=== PATIENT | female | born 1985 | race Hispanic/Latino ===

== ENCOUNTER 2019-12-25 10:28 | Emergency (ER) | payer BC, SELFPAY ==
[2019-12-25 10:36] VITALS: BP 126/76; PULSE 88; RESP 16; TEMP 38.2; O2SAT 100
--- NOTE | 2019-12-25 10:42 | ED.URI ---
HPI - URI/Sore Throat General Chief Complaint: Upper Respiratory Infection Stated Complaint: fever/chills/cough/body aches Time Seen by Provider: 12/25/19 10:45 Source: patient and RN notes reviewed Mode of arrival: ambulatory Limitations: no limitations History of Present Illness HPI Narrative: 34 year old female presents with concern for 3 day history of fever, body aches, runny nose, nasal congestion, cough, sore throat and headache. Reports taking tylenol and mucinex. MD elicited complaint: fever Related Data Home Medications Medication Instructions Recorded Confirmed albuterol sulfate 90 mcg/actuation 1 inhalation INHALATION Q4H 08/18/19 12/25/19 aerosol inhaler Otc Mucous Relief 12/25/19 acetaminophen [Tylenol] 325 mg PO ONCE PRN 12/25/19 12/25/19 Allergies Allergy/AdvReac Type Severity Reaction Status Date / Time house dust Allergy Mild Unknown Verified 12/25/19 10:43 pollen extracts Allergy Mild Unknown Verified 12/25/19 10:43 Review of Systems Review of Systems: Narrative: CONSTITUTIONAL:Reports fever, chills, or sweats. EYES: Denies visual changes, redness, or discharge. ENT: Reports rhinorrhea, congestion, sore throat, or otalgia. CARDIOVASCULAR: Denies chest pain, palpitations, or edema. RESPIRATORY: Reports cough, denies dyspnea. GASTROINTESTINAL: Denies abdominal pain, nausea, vomiting, or diarrhea. SKIN: Denies rash or itching. MUSCULOSKELETAL: Reports myalgia. NEUROLOGIC: Reports weakness. All systems reviewed & are unremarkable except as noted in HPI and below PMFSH Past Medical History Medical History (Updated 12/25/19 @ 10:53 by Ghada Delvalle NP) Asthma Psoriasis Radial styloid tenosynovitis [de quervain] Cyst present Surgical History Surgical History (Updated 08/18/19 @ 15:19 by Sarahi Case) History of cholecystectomy (~2008) Family History Family History (Updated 08/18/19 @ 15:20 by Sarahi Case) Mother Family history of malignant neoplasm of breast in first degree relative Unknown No problems noted. Unknown Diabetes mellitus Unknown No problems noted. Social History Social History (Updated 08/31/19 @ 10:08 by Niharika Reed) Smoking status: Never smoker Second hand tobacco smoke exposure: No Alcohol intake: current Drinks per week: 1 Substance use: never Substance use type: does not use Gender identity (if verbalized by the patient): Female Comments At time of signature, agree with nursing past medical, surgical, social and family history. There is no relevant family history pertinent to the presenting complaint Exam Narrative: Exam Narrative: GENERAL: Well-appearing, well-nourished, and in no acute distress. HEAD: Normocephalic EYES: PERRLA, conjunctivae clear ENT: Nares clear, turbinates edematous and erythematous, clear discharge. Mucous membranes moist. TM pearly pa with dull light reflex bilaterally; no tragal tenderness. Oropharynx not erythematous without lesions. Tonsils not enlarged and without exudate, no drooling, no hoarseness, no trismus, uvula midline. NECK: Supple. No lymphadenopathy CHEST: Clear to auscultation, breath sounds equal. No wheezing, rhonchi, rales, or stridor. No respiratory distress, speaks in full sentences. HEART: Regular rate and rhythm. No murmur heard. Normal peripheral pulses. SKIN: Warm, dry, no rash. NEURO: Alert and oriented x3. PSYCH: Normal mood and affect Course Course Emergency Course: Patient is aware of diagnosis, understands and agrees to treatment plan. Anticipatory guidance given. Patient agrees to follow-up as directed and is aware of reasons to seek care at the emergency department. Portions of this record may have been created with voice recognition software Vital Signs Vital signs: Vital Signs Temperature 100.7 F H 12/25/19 10:36 Pulse Rate 88 12/25/19 10:36 Respiratory Rate 16 12/25/19 10:36 Blood Pressure 126/76 12/25/19 10:36 Pulse Oximetry
== END 2019-12-25 10:58 | disposition home or self-care (01) ==
PROVIDERS: Emergency Provider Nurse Practitioner; PCP Family Medicine
DX: R50.9 Fever, unspecified (principal); J34.89 Other specified disorders of nose and nasal sinuses; J02.9 Acute pharyngitis, unspecified; R05 Cough; R51 Headache
CPT/HCPCS: 99213; G0463

== ENCOUNTER → 2020-11-01 10:50 | Outpatient (CLI) | payer BC, SELFPAY ==
--- NOTE | ~2020-11-01 | MM_ITS ---
EXAMINATION: MM screening joel BI w gregorio HISTORY: Screening TECHNIQUE: Craniocaudal and mediolateral oblique 3-D tomosynthesis images were obtained and synthetic 2-D images were generated. CAD analysis was submitted and interpreted. COMPARISON: 04/21/2019 BREAST PARENCHYMAL COMPOSITION: The breasts are heterogeneously dense, which may obscure small masses . FINDINGS: There is no evidence of suspicious mass, calcification, or architectural distortion to sugg est malignancy in either breast. There has been no suspicious interval change. IMPRESSION: 1. No mammographic evidence of malignancy. 2. Recommend routine screening mammography in one year. BI-RADS Category 1: Negative Reviewed, dictated and finalized at location A. [facility]
== END ==
PROVIDERS: PCP Family Medicine; Visit Provider Physician Assistant
DX: Z12.31 Encounter for screening mammogram for malignant neoplasm of breast (principal)
CPT/HCPCS: 77063; 77067

== ENCOUNTER → 2022-04-10 10:14 | Outpatient (CLI) | payer BC, SELFPAY ==
--- NOTE | ~2022-04-10 | MM_ITS ---
EXAMINATION: MM screening joel BI w gregorio HISTORY: Screening mammogram TECHNIQUE: Craniocaudal and mediolateral oblique 3-D tomosynthesis images were obtained and synthetic 2-D images were generated. CAD analysis was submitted and interpreted. COMPARISON: No prior mammogram is available for comparison at this institution. BREAST PARENCHYMAL COMPOSITION: The breasts are heterogeneously dense, which may obscure small masses . FINDINGS: There is no evidence of suspicious mass, calcification, or architectural distortion to sugg est malignancy in either breast. There has been no suspicious interval change. IMPRESSION: 1. No mammographic evidence of malignancy. 2. Recommend routine screening mammography in one year. BI-RADS Category 1: Negative Reviewed, dictated and finalized at location A.
== END ==
PROVIDERS: PCP Family Medicine; Visit Provider Family Medicine
DX: Z12.31 Encounter for screening mammogram for malignant neoplasm of breast (principal)
CPT/HCPCS: 77063; 77067

== ENCOUNTER 2023-07-27 16:11 | Inpatient (IN) | payer BC, SELFPAY ==
[2023-07-27] VITALS (29 sets, daily range): BP systolic 95–148; BP diastolic 67–99; PULSE 69–85; O2SAT 100; BMI 29.5
--- NOTE | 2023-07-27 16:40 | ADMGEN ---
This patient, Delma Ansari, was admitted to Labor/Delivery/Recovery 108-00. Patient/family oriented to hospital policies and general routines including ID bracelet, bed and alarms, visiting hours, pain management, procedures, bathroom and other care routines, personal items, smoking policy, room service/diet, and visiting hours. Information on how to activate the Rapid Response Team has been discussed. Patient/Family are encouraged to report perceived risks to care and to ask questions if they do not understand what they are told or what they should do.
[2023-07-27 16:49] LABS: Basophils Percent Auto 0.4 % (0.2-1.2); Eosinophils Absolute Auto 0.2 K/mm3 (0-0.3); Eosinophils Percent Auto 2.5 % (0-4.4); Hematocrit 43.2 % (37.0-47.0); Hemoglobin 14.4 g/dL (12.0-15.0); Immature Granulocyte Absolute 0.03 K/mm3 (0.00-0.031); Immature Granulocyte Percent A 0.4 % (0-0.5); Lymphocytes Absolute Auto 1.67 K/mm3 (0.9-3.2); Lymphocytes Percent Auto 23.1 % (18.3-44.2); Mean Corpuscular HGB Conc 33.3 g/dl (32-36); Mean Corpuscular Hemoglobin 31.7 pg (26-34); Mean Corpuscular Volume 95.2 fl (80-100); Mean Platelet Volume 12.1 fl (7.4-10.4); Monocytes Absolute Auto 0.5 K/mm3 (0.1-0.6); Monocytes Percent Auto 6.9 % (2.6-8.5); Neutrophils Absolute Auto 4.8 K/mm3 (1.3-6.7); Neutrophils Percent Auto 66.7 % (45.5-73.1); Platelet Count Result 209 k/mm3 (150-375); Red Blood Count 4.54 M/mm3 (4.2-5.4); Red Cell Distribution Width 12.3 % (11.5-14.5); White Blood Count 7.2 K/mm3 (4.5-10.0)
--- NOTE | 2023-07-27 17:07 | PM.IMHP ---
H&P: HPI History of Present Illness Date/Time: 07/27/23 17:07 Chief Complaint: Induction of labor Narrative: Delma is a 38yo @ 39.0wks who presents for induction of labor. She has had regular care and has followed with [facility] doing testing as well. She reports good movement. No ctx, vb, or lof. Her is complicated by: - IVF donor egg. performed in [place]. Patient stops supplemental progesterone at 15 weeks. aspirin daily... Per [facility], echocardiogram at 24 weeks, ANT starting weekly at 32 weeks. - AMA; NIPT and following w/ MFM - Mild polyhydramnios; MVP 9.3cm Review of Systems Constitutional: Constitutional: Denies chills, Denies fever(s) and Denies headache(s) Eyes: Eyes: Denies change in vision ENT: Denies headache(s) Cardiovascular: Cardiovascular: Denies chest pain and Denies dyspnea Respiratory: Respiratory: Denies dyspnea Genitourinary: Genitourinary: Denies abnormal vaginal bleeding and Denies vaginal discharge Neurologic: Denies headache(s) Psychiatric: Psychiatric: Denies anxiety and Denies depression [facility] Past Medical History Medical History Asthma exercise induced Endometriosis covers her ovaries Infertility Psoriasis Radial styloid tenosynovitis [de quervain] Cyst present Suppression of menses Surgical History Surgical History History of cholecystectomy (~2008) 2009 Family History Family History Mother Family history of malignant neoplasm of breast in first degree relative Dx age 43 Other Hypertension aunt and uncle Grandparent Diabetes mellitus Social History Social History Smoking status: Never smoker Second hand tobacco smoke exposure: No Alcohol intake: current Drinks per week: 1 Alcohol use details: Occasional Substance use: never Lack of Transportation: No Lack of Food: Never True Current Housing: I Have Housing Concerned About Future Housing: No Difficulty Paying Gas/Electric Bills: No Difficulty Paying for Meds: No Currently Unemployed: No Education: Bachelor's Degree Difficulty w/ Childcare or Family Care: No Living arrangements: with family Additional living arrangements comments: Occupation/Education: unemployed Gender identity (if verbalized by the patient): Female Sexual Orientation (if Verbalized by the Patient): Straight or Heterosexual Spiritual care concerns: No Agree to blood products: Yes Meds Home Medications and Allergies Home Medications Medication Instructions Recorded Confirmed Type docosahexaenoic acid (dha)-epa 120 1 cap PO DAILY 11/26/21 07/27/23 History mg-180 mg capsule (Fish Oil) aspirin 81 mg tablet,delayed 81 mg PO DAILY 04/06/23 07/27/23 History release (Adult Low Dose Aspirin) magnesium 200 mg tablet 400 mg PO DAILY 04/06/23 07/27/23 History albuterol sulfate 90 mcg/actuation See Rx Instructions .Route 07/08/23 07/27/23 Rx aerosol inhaler .COMPLEX #8.5 ea 1 tab-cap PO DAILY 07/27/23 07/27/23 History Allergies Allergy/AdvReac Type Severity Reaction Status Date / Time No Known Allergies Allergy Verified 07/27/23 16:56 Exam Const: General: cooperative, comfortable, no acute distress and obese Nutritional Appearance: obese Orientation/consciousness: patient oriented x3 Resp: Effort & Inspection: normal respiratory effort Cardio: Rate: regular rate GI: GI Palp: No abdominal tenderness : Other: FHT's: 135's/ mod janny/ + accels/ no decels - cat 1 TOCO: irregular ctxs q6min Cervix: closed/50/-2 Membranes: intact Presentation: cephalic Skin: General skin exam: normal color Neuro: General: patient oriented x3 Extrem: General: normal to inspection Psych:
[2023-07-27] MEDS: DINOPROSTONE 10 MG VAG INSERT VAGINAL (17:36)
[2023-07-28] VITALS (138 sets, daily range): BP systolic 86–148; BP diastolic 55–99; PULSE 60–108; RESP 16; TEMP 36.6–37.3; O2SAT 97–100
[2023-07-28] MEDS: miSOPROStol 25 MCG TABLET PO (07:04)
--- NOTE | 2023-07-28 07:25 | PM.OBPNLAB ---
Pain Control Date/time seen: 07/28/23 07:25 Pain control: tolerating well Pelvic Exam Dilation (cm): 0 (.5) Effacement (%): 80 station: -2 Amniotic membrane status: Intact Contractions Monitor mode: External Contraction pattern: Irregular Status status: Category l Assessment and Plan Assessment: induction ongoing Comments: misoprostol 25mcg buccal @ 0700 Cook balloon placed at 0720; 30cc in each balloon; will place on tension
[2023-07-28 10:43] LABS: Rapid Plasma Reagin Non-Reactive (NonReactive)
[2023-07-28] MEDS: OXYTOCIN 30 UNITS/NS 500 ML 30 UNITS/500 ML BAG 6 UNITS IV CONT (12:14)
[2023-07-28] MEDS: LACTATED RINGERS 1,000 ML 125 ML IV CONT ×3 (12:14→19:06)
--- NOTE | 2023-07-28 12:39 | PM.OBPNLAB ---
Pain Control Date/time seen: 07/28/23 12:39 Pain control: tolerating well Pelvic Exam Dilation (cm): 2 Effacement (%): 80 station: -2 Amniotic membrane status: Ruptured (AROM, clear 1230) Contractions Monitor mode: External Contraction frequency: 3 Contraction pattern: Regular Status status: Category l Assessment and Plan Pitocin rate (mU/min): 6 Assessment: induction ongoing Plan: continuous present management
--- NOTE | 2023-07-28 17:53 | WPDANESEPPF ---
Anes - Initial Pre Proc Eval Procedure: labor epidural Date/Time: 07/28/23 17:53 Surgeon: Marian Booth MD Pre Op Diagnosis: labor pain Pre Op Diagnosis: IOL Patient Data Age: 38 Gender: F Height: 1.63 m Weight: 78 kg Last Vital Signs Temp 36.8 C 07/28/23 17:30 Pulse 94 07/28/23 16:30 Resp 16 07/28/23 05:38 BP 136/85 07/28/23 16:30 Pulse Ox 100 07/27/23 16:29 O2 Del Method Room Air 07/27/23 16:34 Allergies Allergy/AdvReac Type Severity Reaction Status Date / Time No Known Allergies Allergy Verified 07/27/23 16:56 Home Medications Medication Instructions Recorded Confirmed Type docosahexaenoic acid (dha)-epa 120 1 cap PO DAILY 11/26/21 07/27/23 History mg-180 mg capsule (Fish Oil) aspirin 81 mg tablet,delayed 81 mg PO DAILY 04/06/23 07/27/23 History release (Adult Low Dose Aspirin) magnesium 200 mg tablet 400 mg PO DAILY 04/06/23 07/27/23 History albuterol sulfate 90 mcg/actuation See Rx Instructions .Route 07/08/23 07/27/23 Rx aerosol inhaler .COMPLEX #8.5 ea 1 tab-cap PO DAILY 07/27/23 07/27/23 History Laboratory Tests 07/27/23 16:43 RPR Non-reactive (NonReactive) Patient hx anesthesia problems: none Family hx anesthesia problems: none Results Review: All pre-operative results and documents have been reviewed as part of the pre-operative evaluation. [facility] Past Medical History Medical History Asthma exercise induced Endometriosis covers her ovaries Infertility Psoriasis Radial styloid tenosynovitis [de quervain] Cyst present Suppression of menses Surgical History Surgical History History of cholecystectomy (~2008) 2009 Family History Family History Mother Family history of malignant neoplasm of breast in first degree relative Dx age 43 Other Hypertension aunt and uncle Grandparent Diabetes mellitus Social History Social History Smoking status: Never smoker Second hand tobacco smoke exposure: No Alcohol intake: current Drinks per week: 1 Alcohol use details: Occasional Substance use: never Lack of Transportation: No Lack of Food: Never True Current Housing: I Have Housing Concerned About Future Housing: No Difficulty Paying Gas/Electric Bills: No Difficulty Paying for Meds: No Currently Unemployed: No Education: Bachelor's Degree Difficulty w/ Childcare or Family Care: No Living arrangements: with family Additional living arrangements comments: Occupation/Education: unemployed Gender identity (if verbalized by the patient): Female Sexual Orientation (if Verbalized by the Patient): Straight or Heterosexual Spiritual care concerns: No Agree to blood products: Yes Anes - Eval Final PreProcedure Day of Procedure 07/28/23 17:53 Patient weight: overweight ASA classification: II Anesthetic plan: proceed Anesthesia type and monitoring: regional epidural and standard monitoring Results Review: All pre-operative results and documents have been reviewed as part of the pre-operative evaluation. Informed Consent: The patient's anesthetic plan and its attendant risks and benefits were discussed with the patient/family/POA. Questions were solicited and answers provided to the satisfaction of the patient/family/POA.
--- NOTE | 2023-07-28 19:02 | PM.OBPNLAB ---
Pain Control Date/time seen: 07/28/23 19:02 Pain control: epidural Pelvic Exam Dilation (cm): 4 Effacement (%): 90 station: -2 Amniotic membrane status: Ruptured (AROM, clear 1230) Contractions Monitor mode: Internal Contraction frequency: 3 (-4) Contraction pattern: Regular Status status: Category l Assessment and Plan Pitocin rate (mU/min): 22 Assessment: induction ongoing Plan: continuous present management
[2023-07-29] VITALS (189 sets, daily range): BP systolic 105–223; BP diastolic 59–150; PULSE 31–164; RESP 16–18; TEMP 36.8–40; O2SAT 77–100
[2023-07-29] MEDS: LACTATED RINGERS 1,000 ML 125 ML IV CONT ×2 (03:06→10:04)
[2023-07-29] MEDS: diphenhydrAMINE HCl INJ 50 MG/ML VIAL 25 MG IV PUSH (05:36)
[2023-07-29] MEDS: OXYTOCIN 30 UNITS/NS 500 ML 30 UNITS/500 ML BAG 6 UNITS IV CONT (07:14)
--- NOTE | 2023-07-29 07:30 | PM.OBPNLAB ---
Pain Control Date/time seen: 07/29/23 07:30 Pain control: epidural Pelvic Exam Dilation (cm): 8 (.5) Effacement (%): 90 station: 0 Amniotic membrane status: Ruptured (AROM, clear 1230) Contractions Monitor mode: Internal Contraction frequency: 4 Contraction pattern: Regular Status status: Category l Assessment and Plan Pitocin rate (mU/min): 26 Assessment: active labor Plan: continuous present management Comments: - protracted labor; was 6cm from 2a-5a; now 8.5cm - continuing to increase pitocin; head feels OP - Ruptured >18hrs; will start ampicillin, currently afebrile
[2023-07-29] MEDS: AMPICILLIN 2 GM/NS 100 ML 2 GM/100 ML BAG IVPB ×2 (07:47→19:09)
[2023-07-29] MEDS: ACETAMINOPHEN 500 MG TABLET 1000 MG PO (09:41)
[2023-07-29] MEDS: GENTAMICIN SULFATE INJ 390 MG in DEXTROSE 5% 100 ML 100 MG IVPB (10:03)
[2023-07-29] MEDS: miSOPROStol 200 MCG TABLET 1000 MCG RECTAL (12:22)
[2023-07-29] MEDS: AMPICILLIN 1 GM/NS 50 ML 1 GM/50 ML BAG IVPB ×2 (12:30→13:00)
[2023-07-29] MEDS: OXYTOCIN 30 UNITS/NS 500 ML 30 UNITS/500 ML BAG 125 UNITS IV CONT (12:30)
--- NOTE | 2023-07-29 13:04 | PM.OBPRVD ---
OB - Delivery Note Procedure Delivery date: 07/29/23 Events: Other (Medical IOL for AMA/IVF ) Intrapartal Events: Chorioamnionitis and Decelerations Induction method: Per Cervidil Protocol Delivery augmentation: Rupture of Membranes and Pitocin Delivery monitor: External FHT and Internal Uterine Route of delivery: vacuum extraction Indication for instrumentation: maternal exhaustion (and nonreassuring FHR tracing) Laceration Description: Perineal - 2nd Degree and Vaginal (left) Delivery repair: vicryl Specimen: Yes (placenta) Quantitative Blood Loss (ml): 500 Anesthesia type: Epidural Disposition: Floor Baby Date of : 07/29/23 Time of : 12:11 Weeks of gestation at delivery: 39 (.2) gender: Female presentation: vertex position: Right Occiput Anterior Placenta delivery description: Expressed Cord Vessel Description: 3 Vessels and Delayed Cord Clamping score one minute: 8 score five minutes: 9 Narrative: Delma progressed to complete dilation and began pushing with good maternal effort for approximately 2 hours. She was diagnosed with chorioamnionitis and had a fever up to 104 F. She was given gentamicin 5 mg/kg, ampicillin 2 g, and Tylenol. While pushing fetus was found to be tachycardic but still had moderate variability. She was bolused IV fluids but fetus remained with heart rate in the 180s to 190s. When Delma progressed to 2+ station I counseled her on need for vacuum assisted vaginal delivery due to the heart tones and she accepted as she was exhausted. The vacuum was applied and with her next contraction 1 pull was performed. The vacuum was released and we waited until her next contraction. With the next contraction suction was reapplied and with 2 pulls the head was delivered. Nuchal cord was noted but delivered through. She easily delivered the infant's shoulders and body without complication. The vacuum was released. The infant was immediately placed skin to skin. The pediatric attending was present for the delivery. The pediatric nurse then bulb suctioned the infants mouth and nose. Spontaneous cry was heard. Delayed cord clamping was performed. The umbilical cord was then doubly clamped and cut. A segment of the cord was collected for cord gases. The remaining cord blood was collected for typing. With Pitocin running and gentle downward traction on the cord the placenta delivered without complications. Bimanual massage was performed and good uterine tone with minimal bleeding was noted. She was examined and a second-degree perineal laceration as well as a left vaginal laceration were noted. The second-degree laceration was repaired in normal fashion using 2-0 Vicryl. The vaginal laceration was repaired using 3-0 Vicryl. Good hemostasis was noted. Due to her long induction, we proceeded with placing 1000 mcg of misoprostol rectally. She will continue antibiotics for a full 24 hours. Sponge, lap, instrument, and needle counts were correct at the end of procedure. Mom and baby were left bonding in the birthing suite in stable condition. [facility] Delivery Billing Delivery Delivery: Delivery Charge
[2023-07-29] MEDS: IBUPROFEN 600 MG TABLET PO (14:20)
[2023-07-29] MEDS: BENZOCAINE 20% AER SPR (*SP) 56 GM CAN 1 SPRAY TOPICAL (14:21)
[2023-07-29] MEDS: WITCH HAZEL 40 PADS 1 PAD TOPICAL (14:21)
--- NOTE | 2023-07-29 16:36 | OBPPTRN ---
1446-Patient transferred to post room #278 via wheelchair. Support person present. Oriented to unit, room, information board, rooming in, admission packet and security measures. Patient verbalizes understanding.
[2023-07-29] MEDS: CLINDAMYCIN 900 MG/D5W 50 ML 900 MG/50 ML PIGGYBACK 50 MG IVPB (17:17)
[2023-07-29] MEDS: SODIUM CHLORIDE 0.9% IV 250 ML 125 ML (19:46)
[2023-07-30] MEDS: AMPICILLIN 2 GM/NS 100 ML 2 GM/100 ML BAG IVPB ×3 (01:13→14:00)
[2023-07-30 04:15] VITALS: BP 120/75; PULSE 77; RESP 16; TEMP 36.4
[2023-07-30 05:27] LABS: Basophils Absolute Auto 0.1 K/mm3 (0.0-0.1); Basophils Percent Auto 0.4 % (0.2-1.2); Eosinophils Absolute Auto 0.1 K/mm3 (0-0.3); Eosinophils Percent Auto 0.3 % (0-4.4); Hematocrit 29.2 % (37.0-47.0); Hemoglobin 9.8 g/dL (12.0-15.0); Immature Granulocyte Absolute 0.16 K/mm3 (0.00-0.031); Immature Granulocyte Percent A 0.7 % (0-0.5); Lymphocytes Absolute Auto 2.45 K/mm3 (0.9-3.2); Lymphocytes Percent Auto 10.3 % (18.3-44.2); Mean Corpuscular HGB Conc 33.6 g/dl (32-36); Mean Corpuscular Hemoglobin 31.7 pg (26-34); Mean Corpuscular Volume 94.5 fl (80-100); Mean Platelet Volume 12.4 fl (7.4-10.4); Monocytes Absolute Auto 1.2 K/mm3 (0.1-0.6); Monocytes Percent Auto 5.1 % (2.6-8.5); Neutrophils Absolute Auto 19.9 K/mm3 (1.3-6.7); Neutrophils Percent Auto 83.2 % (45.5-73.1); Platelet Count Result 145 k/mm3 (150-375); Red Blood Count 3.09 M/mm3 (4.2-5.4); Red Cell Distribution Width 12.6 % (11.5-14.5); White Blood Count 23.9 K/mm3 (4.5-10.0)
[2023-07-30 05:41] LABS: Potassium 3.4 mmol/L (3.4-5.0)
[2023-07-30 06:03] LABS: Alanine Aminotransferase 29 U/L (6-35); Albumin Level 2.6 g/dL (3.5-5.1); Alkaline Phosphatase 149 U/L (38-126); Anion Gap 6 mmol/L (8-16); Aspartate Amino Transferase 89 U/L (14-36); Bilirubin,Total 0.4 mg/dL (0.2-1.3); Blood Urea Nitrogen 8 mg/dL (7-17); Calcium 7.5 mg/dL (8.4-10.2); Carbon Dioxide 17 mmol/L (22-30); Chloride 111 mmol/L (98-107); Estimated CRCL calculation 108 ml/min; Estimated Glomerular Filt Rate > 60; Glucose 102 mg/dL (65-110); Sodium 134 mmol/L (137-145)
--- NOTE | 2023-07-30 07:45 | PM.OBPNVD ---
OB - PN: Subj Subjective Date/time seen: 07/30/23 07:45 Narrative: PPD#1 Delma reports doing well today. Her bleeding is cigarette examiner. Her pain is controlled. She is tolerating regular diet, voiding, passing gas, and ambulating without issues. She is breast feeding. She has been afebrile overnight; has still been getting antibiotics. OB - PN: Obj Data Labs 07/30/23 04:25 07/30/23 04:25 Labs: Laboratory Results - last 24 hr 07/30/23 04:25 WBC 23.9 H RBC 3.09 L Hgb 9.8 L D Hct 29.2 L MCV 94.5 MCH 31.7 MCHC 33.6 RDW 12.6 Plt Count 145 L MPV 12.4 H Immature Gran % (Auto) 0.7 H Neut % (Auto) 83.2 H Lymph % (Auto) 10.3 L [place] % (Auto) 5.1 Eos % (Auto) 0.3 Baso % (Auto) 0.4 Lymph # (Auto) 2.45 [place] # (Auto) 1.2 H Eos # (Auto) 0.1 Baso # (Auto) 0.1 Abs Immat Gran (auto) 0.16 H Absolute Neuts (auto) 19.9 H Absolute Nucleated RBC 0.0 Nucleated RBC % 0.0 Sodium 134 L Potassium 3.4 Chloride 111 H Carbon Dioxide 17 L Anion Gap 6 L BUN 8 Creatinine 0.60 L Estim Creat Clear Calc 108 Estimated GFR > 60 Glucose 102 Calcium 7.5 L Total Bilirubin 0.4 AST 89 H ALT 29 Alkaline Phosphatase 149 H Total Protein 5.0 L Albumin 2.6 L OB - PN A/P Assessment and Plan (1) Vacuum-assisted vaginal delivery: Code(s): Z37.9 - Outcome of delivery, unspecified Status: Acute (2) Chorioamnionitis: Qualifiers: Fetus number: single or unspecified fetus Trimester: unspecified trimester Qualified Code(s): O41.1290 - Chorioamnionitis, unspecified trimester, not applicable or unspecified Code(s): O41.1290 - Chorioamnionitis, unspecified trimester, not applicable or unspecified Status: Acute (3) PPH ( hemorrhage): Qualifiers: hemorrhage type: third-stage Qualified Code(s): O72.0 - Third-stage hemorrhage Code(s): O72.1 - Other immediate hemorrhage Status: Acute Plan day: 1 Plan: routine care Comments: - continuing antibiotics until 24 hour PP - will repeat blood work in AM to monitor WBC; afebrile overnight Time Spent With Patient Time: Total time spent is greater than 50% in coordination of care (as documented) at patient's floor/unit and/or counseling patient: Review of Systems Constitutional: Constitutional: Denies chills, Denies fever(s) and Denies headache(s) Eyes: Eyes: Denies change in vision ENT: Denies dizziness and Denies headache(s) Cardiovascular: Cardiovascular: Denies chest pain, Denies palpitations and Denies dyspnea Respiratory: Respiratory: Denies cough and Denies dyspnea Gastrointestinal: Gastrointestinal: Denies nausea and Denies vomiting Neurologic: Denies dizziness and Denies headache(s) Endocrine: Endocrine: Denies palpitations Exam Const: General: cooperative, comfortable and no acute distress Orientation/consciousness: patient oriented x3 Resp: Effort & Inspection: normal respiratory effort Auscultation: clear to auscultation bilaterally Cardio: Rate: regular rate GI: Inspection: non-distended GI Palp: No abdominal tenderness and Yes Soft to palpation Auscultation: normal bowel sounds : Other: fundus firm Skin: General skin exam: normal color Neuro: General: patient oriented x3 Extrem: General: normal to inspection Psych: Appearance: grossly normal Affect: normal affect Attitude: cooperative
[2023-07-30 07:50] VITALS: BP 105/66; PULSE 69; RESP 16; TEMP 36.2; O2SAT 100
[2023-07-30 08:00] VITALS: PULSE 69; RESP 16; O2SAT 100
--- NOTE | 2023-07-30 08:10 | P.PNOB_ITS ---
OB - PN: Subj Subjective Date/time seen: 07/30/23 08:10 Patient comments: no complaints, pain well controlled and tolerating diet [place] feeding status: exclusively breast feeding Narrative: patient doing well this AM. No complaints. Pain is well controlled. She reports minimal bleeding. She is ambulating and voiding without difficulty. She is tolerating PO. She denies N/V, fever, chills. OB - PN: Obj Data Labs 07/30/23 04:25 07/30/23 04:25 Labs: Laboratory Results - last 24 hr 07/30/23 04:25 WBC 23.9 H RBC 3.09 L Hgb 9.8 L D Hct 29.2 L MCV 94.5 MCH 31.7 MCHC 33.6 RDW 12.6 Plt Count 145 L MPV 12.4 H Immature Gran % (Auto) 0.7 H Neut % (Auto) 83.2 H Lymph % (Auto) 10.3 L [place] % (Auto) 5.1 Eos % (Auto) 0.3 Baso % (Auto) 0.4 Lymph # (Auto) 2.45 [place] # (Auto) 1.2 H Eos # (Auto) 0.1 Baso # (Auto) 0.1 Abs Immat Gran (auto) 0.16 H Absolute Neuts (auto) 19.9 H Absolute Nucleated RBC 0.0 Nucleated RBC % 0.0 Sodium 134 L Potassium 3.4 Chloride 111 H Carbon Dioxide 17 L Anion Gap 6 L BUN 8 Creatinine 0.60 L Estim Creat Clear Calc 108 Estimated GFR > 60 Glucose 102 Calcium 7.5 L Total Bilirubin 0.4 AST 89 H ALT 29 Alkaline Phosphatase 149 H Total Protein 5.0 L Albumin 2.6 L OB - PN A/P Plan day: 1 Plan: routine care Comments: patient doing well H/H 9.8/29.2, continue iron supplementation Afebrile, vital signs stable continue routine care Time Spent With Patient Time: Total time spent is greater than 50% in coordination of care (as documented) at patient's floor/unit and/or counseling patient: Time with patient: less than 15 minutes Review of Systems Review of Systems: All systems reviewed & are unremarkable except as noted in HPI and below Exam Const: General: comfortable and no acute distress Resp: Effort & Inspection: normal respiratory effort Cardio: Rate: regular rate GI: GI Palp: Yes Soft to palpation and No Tenderness to palpation present (GI) Auscultation: normal bowel sounds Other: fundus firm and below umbilicus. Psych: Affect: normal affect
[2023-07-30] MEDS: POLYSACCHARIDE IRON COMPLEX 150 MG CAPSULE PO ×2 (08:29→15:52)
[2023-07-30] MEDS: DOCUSATE SODIUM 100 MG CAPSULE PO ×2 (08:29→15:52)
[2023-07-30] MEDS: MULTIVIT/MIN/PREN/FOL AC/IRON TABLET 1 TAB PO (08:29)
[2023-07-30] MEDS: IBUPROFEN 600 MG TABLET PO (08:40)
[2023-07-30] MEDS: GENTAMICIN SULFATE INJ 390 MG in DEXTROSE 5% 100 ML 100.92 MG IVPB (10:21)
[2023-07-30 12:00] VITALS: BP 98/62; PULSE 78; RESP 16; TEMP 36.3; O2SAT 100
--- NOTE | 2023-07-30 14:14 | WPDANLDPN2 ---
Anes-Prog Note L&D Date/Time: 07/30/23 14:14 Comfortable throughout: labor and delivery Neuraxial method: epidural Epidural/Spinal procedure site: clean & non-tender Neuro status: Neuro function grossly intact. Cardiovascular status: normal Respiratory status: normal Airway patency: baseline Mental status: baseline Post-Op hydration status: normal Vital Signs: Last Vital Signs Temp 36.3 C L 07/30/23 12:00 Pulse 78 07/30/23 12:00 Resp 16 07/30/23 12:00 BP 98/62 L 07/30/23 12:00 Pulse Ox 100 07/30/23 12:00 O2 Del Method Room Air 07/30/23 08:00 Pain score (VAS): 2/10 I/O: Intake & Output 07/29/23 07/30/23 07/30/23 23:59 07:59 15:59 Intake Total 100 100 240 Balance 100 100 240 Post-procedural complaints: none Patient feedback: Patient satisfied with anesthetic care.
--- NOTE | 2023-07-30 18:49 | PC.NURSE ---
[id number] Introductions were made, then consulted with patient to assess needs related to . Mother led the conversation with her?plans to feed?her infant and the?experience so far. Mother works well with her with encouragement and education. Encouraged understanding of the benefits of skin to skin (demonstrating unwrapping and placing upright on her chest), stimulating with massage touch, changing positions to encourage wakefulness, how to watch for early feeding cues, responsive feeding, feeding on demand (aiming for 8-12 times in 24 hours, about every 2-3 hours), milk production, building/maintaining a milk supply, duration of feeding, signs of adequate intake/output and how to record on the feeding sheet. Reviewed positioning and ear, shoulder, hip alignment, supporting the breast to facilitate a deep latch, asymmetrical latch (off-center), leading with the chin with a big, open, wide gape and body close to mother. Infant latched optimally to the right breast in football position after a few attempts. Education given to parents of how to visualize suck/swallow and listen for drinking at the breast. was able to maintain latch without discomfort to mother and effectively breast feeds with assistance given to mother to bring the infant to the breast deeply. Nipple care reviewed with optimal latch and good positioning. Encouraged mother to practice holding, moving and bringing the to the breast reviewing alignment. Reminding mother of comfort measures of healing with a warm and wet washcloth to rinse breast, then leave open to air-dry as needed. Once infant stopped demonstrating swallowing was detached, placed [id number] upright on mother's chest, then offered the left breast. Reviewed alignment, positioning, supporting breast to facilitate infant latching deeply as has difficulty latching optimally to mother's large nipple. latched to the left breast using the football positioning after a few attempts. Education given to parents of how to visualize suck/swallow and listen for drinking at the breast. Infant was able to maintain latch without discomfort to mother and effectively breast feeds with assistance given to mother to bring the infant to the breast deeply. Nipple care reviewed with optimal latch and good positioning. Reviewed good handwashing when or touching the breast/nipples to prevent infection. Mother voiced understanding of skin to skin, stimulating with massage touch, responsive feedings, talking to to encourage if it has been 2 -2.5 hours since the start of the last , to call if does not latch, or if there is discomfort with . Parents voiced understanding of information, demonstrated learning and will call if there is a request for assistance. Reported to the Primary RN.
[2023-07-30 21:30] VITALS: BP 103/53; PULSE 79; RESP 18; TEMP 36.3
[2023-07-31 05:52] LABS: Basophils Absolute Auto 0.1 K/mm3 (0.0-0.1); Basophils Percent Auto 0.4 % (0.2-1.2); Eosinophils Absolute Auto 0.3 K/mm3 (0-0.3); Eosinophils Percent Auto 1.5 % (0-4.4); Hemoglobin 10.1 g/dL (12.0-15.0); Immature Granulocyte Absolute 0.19 K/mm3 (0.00-0.031); Immature Granulocyte Percent A 1.1 % (0-0.5); Lymphocytes Absolute Auto 2.13 K/mm3 (0.9-3.2); Lymphocytes Percent Auto 12.3 % (18.3-44.2); Mean Corpuscular HGB Conc 32.6 g/dl (32-36); Mean Corpuscular Hemoglobin 31.5 pg (26-34); Mean Corpuscular Volume 96.6 fl (80-100); Mean Platelet Volume 11.8 fl (7.4-10.4); Monocytes Absolute Auto 0.6 K/mm3 (0.1-0.6); Monocytes Percent Auto 3.6 % (2.6-8.5); Neutrophils Percent Auto 81.1 % (45.5-73.1); Platelet Count Result 176 k/mm3 (150-375); Red Blood Count 3.21 M/mm3 (4.2-5.4); Red Cell Distribution Width 12.7 % (11.5-14.5); White Blood Count 17.3 K/mm3 (4.5-10.0)
[2023-07-31 06:01] LABS: Alanine Aminotransferase 36 U/L (6-35); Alkaline Phosphatase 134 U/L (38-126); Anion Gap 2 mmol/L (8-16); Aspartate Amino Transferase 69 U/L (14-36); Bilirubin,Total 0.3 mg/dL (0.2-1.3); Blood Urea Nitrogen 8 mg/dL (7-17); Calcium 8.4 mg/dL (8.4-10.2); Carbon Dioxide 27 mmol/L (22-30); Chloride 106 mmol/L (98-107); Estimated CRCL calculation 108 ml/min; Estimated Glomerular Filt Rate > 60; Glucose 90 mg/dL (65-110); Potassium 3.5 mmol/L (3.4-5.0); Sodium 135 mmol/L (137-145)
[2023-07-31 07:30] VITALS: BP 127/76; PULSE 83; RESP 16; TEMP 36.5; O2SAT 100
[2023-07-31] MEDS: IBUPROFEN 600 MG TABLET PO (08:35)
[2023-07-31] MEDS: MULTIVIT/MIN/PREN/FOL AC/IRON TABLET 1 TAB PO (08:35)
--- NOTE | 2023-07-31 10:42 | PM.OBDSVD ---
DS: Admitting Diagnosis Discharge Date 07/31/23 Admitting Diagnosis intrauterine at term advanced maternal age IVF DS: Discharge Diagnosis Discharge Diagnosis (1) Vacuum-assisted vaginal delivery: Code(s): Z37.9 - Outcome of delivery, unspecified Status: Acute (2) PPH ( hemorrhage): Qualifiers: hemorrhage type: third-stage Qualified Code(s): O72.0 - Third-stage hemorrhage Code(s): O72.1 - Other immediate hemorrhage Status: Acute (3) conceived through in vitro fertilization: Qualifiers: Trimester: third trimester Qualified Code(s): O09.813 - Supervision of resulting from assisted reproductive technology, third trimester Code(s): O09.819 - Supervision of resulting from assisted reproductive technology, unspecified trimester Status: Acute (4) Advanced maternal age (AMA) in : Status: Acute OB - DS: Summary OB Procedures : None OB Procedures Intrapartum: Spontaneous Vag Delivery OB Procedures: : None Status at Discharge Functional status at discharge: independent ambulation Overall status at discharge: patient is back to baseline Time Spent with Patient Time attestation: Total time spent providing and/or coordinating discharge services: Time spent: Less than 30 minutes Exam Const: General: comfortable and no acute distress Resp: Effort & Inspection: normal respiratory effort Auscultation: clear to auscultation bilaterally Cardio: Rate: regular rate GI: GI Palp: Yes Soft to palpation Auscultation: normal bowel sounds Other: Fundus firm below umbilicus Psych: Appearance: grossly normal Mental Status: mental status grossly normal Affect: normal affect DS: Data Data Completed and Pending Pending studies at discharge: Pending at discharge 07/29/23 12:18 Surgical [PTH] Routine Labs on day of discharge: Labs from last 24 hours 07/31/23 07/31/23 07/31/23 05:16 05:16 05:16 WBC RBC Hgb Hct MCV MCH MCHC RDW 12.7 Plt Count 176 Cancelled MPV 11.8 H Cancelled Immature Gran % (Auto) 1.1 H Neut % (Auto) 81.1 H Lymph % (Auto) 12.3 L [place] % (Auto) 3.6 Eos % (Auto) 1.5 Baso % (Auto) 0.4 Lymph # (Auto) 2.13 [place] # (Auto) 0.6 Eos # (Auto) 0.3 Baso # (Auto) 0.1 Abs Immat Gran (auto) 0.19 H Absolute Neuts (auto) 14.0 H Absolute Nucleated RBC 0.0 Nucleated RBC % 0.0 % Immature Plt Fraction Cancelled Sodium 135 L Potassium 3.5 Chloride 106 Carbon Dioxide 27 Anion Gap 2 L BUN 8 Creatinine 0.60 L Estim Creat Clear Calc 108 Estimated GFR > 60 Glucose 90 Calcium 8.4 Total Bilirubin 0.3 AST 69 H ALT 36 H Alkaline Phosphatase 134 H Total Protein 6.0 L Albumin 3.0 L 07/31/23 07/31/23 07/31/23 05:16 05:16 05:16 WBC RBC Hgb Hct MCV 96.6 MCH 31.5 Cancelled MCHC 32.6 Cancelled RDW Cancelled Plt Count MPV Immature Gran % (Auto) Neut % (Auto) Lymph % (Auto) [place] % (Auto) Eos % (Auto) Baso % (Auto) Lymph # (Auto) [place] # (Auto) Eos # (Auto) Baso # (Auto) Abs Immat Gran (auto) Absolute Neuts (auto) Absolute Nucleated RBC Nucleated RBC % % Immature Plt Fraction Sodium Potassium Chloride Carbon Dioxide Anion Gap BUN Creatinine Estim Creat Clear Calc Estimated GFR Glucose Calcium Total Bilirubin AST ALT Alkaline Phosphatase Total Protein Albumin 07/31/23 07/31/23 07/31/23 05:16 05:16 05:16 WBC RBC 3.21 L Hgb 10.1 L Cancelled Hct 31.0 L Cancelled MCV Cancelled MCH MCHC RDW Plt Count MPV Immature Gran % (Auto) Neut % (Auto) Lymph % (Auto) [place] % (Auto) Eos % (Auto) Baso % (Auto) Lym
== END 2023-07-31 14:33 | disposition home or self-care (01) | DRG 806 ==
LOC: ANHOB2 07-31 12:06 → ANHLDR 08-02 12:02 → ANHOB2 08-02 12:02
PROVIDERS: Admitting Provider Obstetrics & Gynecology; PCP Family Medicine; Visit Provider Student in an Organized Health Care Education/Training Program
DX: O41.1230 Chorioamnionitis, third trimester, not applicable or unspecified (principal); O72.0 Third-stage hemorrhage; Z37.0 Single live birth; O40.3XX0 Polyhydramnios, third trimester, not applicable or unspecified; O76 Abnormality in fetal heart rate and rhythm complicating labor and delivery; O70.1 Second degree perineal laceration during delivery; O69.81X0 Labor and delivery complicated by cord around neck, without compression, not applicable or unspecified; O67.8 Other intrapartum hemorrhage; Z3A.39 39 weeks gestation of pregnancy; Z23 Encounter for immunization
CPT/HCPCS: 36415; 80053; 85025; 86592; 86850; 86900; 86901; 88307; 90471; 90686; A9270; G0008; J0290; J1200; J1580; J2590; J2795; J7050; J7120

== ENCOUNTER 2024-03-01 10:05 | Outpatient (CLI) | payer BC, SELFPAY ==
--- NOTE | ~2024-03-01 | MM_ITS ---
EXAMINATION: MM screening joel BI w gregorio HISTORY: Screening mammogram TECHNIQUE: Craniocaudal and mediolateral oblique 3-D tomosynthesis images were obtained and synthetic 2-D images were generated. CAD analysis was submitted and interpreted. COMPARISON: 04/06/2022, 11/01/2020 bilateral screening mammogram examinations BREAST PARENCHYMAL COMPOSITION: The breasts are extremely dense, which lowers the sensitivity of mamm ography. FINDINGS: There is no evidence of suspicious mass, calcification, or architectural distortion to sugg est malignancy in either breast. There has been no suspicious interval change. IMPRESSION: 1. No mammographic evidence of malignancy. 2. Recommend routine screening mammography in one year. BI-RADS Category 1: Negative Reviewed, dictated and finalized at location B.
== END 2024-03-01 10:06 ==
LOC: MICIMG 10:06
PROVIDERS: PCP Obstetrics & Gynecology; Visit Provider Obstetrics & Gynecology
DX: Z12.31 Encounter for screening mammogram for malignant neoplasm of breast (principal)
CPT/HCPCS: 77063; 77067

== ENCOUNTER 2025-03-22 11:33 | Outpatient (CLI) | payer BC, SELFPAY ==
--- NOTE | ~2025-03-22 | US_ITS ---
Pelvic ultrasound. Clinical History: Endometriosis Technique: Realtime transvaginal scanning of the pelvis was performed. Color flow Doppler and Doppler spectral analysis were performed. Findings: The uterus is anteverted, and measures 7.9 x 4.4 x 5.5 cm. The endometrial stripe has a th ickness of 5 mm. No focal mass is identified. The right ovary measures 2.2 x 1.5 x 1.8 cm. No significant right ovarian or adnexal mass is seen. The left ovary measures 2.1 x 1.6 x 2.0 cm. No significant left ovarian or adnexal mass is seen. There is no evidence of free fluid in the cul de sac. Impression: Unremarkable pelvic ultrasound. Reviewed, dictated and finalized at [facility]. Impression: Unremarkable pelvic ultrasound.
== END 2025-03-22 11:34 | disposition home or self-care (01) ==
LOC: MICIMG 11:34
PROVIDERS: PCP Obstetrics & Gynecology; Visit Provider Obstetrics & Gynecology
DX: N80.9 Endometriosis, unspecified (principal)
CPT/HCPCS: 76830

== ENCOUNTER 2025-07-04 10:47 | Outpatient (CLI) | payer BC, SELFPAY ==
--- NOTE | ~2025-07-04 | MM_ITS ---
EXAMINATION: MM screening joel BI w gregorio HISTORY: Screening TECHNIQUE: Craniocaudal and mediolateral oblique 3-D tomosynthesis images were obtained and synthetic 2-D images were generated. CAD analysis was submitted and interpreted. COMPARISON: 04/10/2022 BREAST PARENCHYMAL COMPOSITION: The breasts are extremely dense, which lowers the sensitivity of mammography. FINDINGS: There is no evidence of suspicious mass, calcification, or architectural distortion to suggest malignancy in either breast. There has been no significant interval change. IMPRESSION: 1. No mammographic evidence of malignancy. Recommend routine screening mammography in one year. BI-RADS Category 1: Negative Reviewed, dictated and finalized at location Q. IMPRESSION: 1. No mammographic evidence of malignancy. Recommend routine screening mammogra phy in one year. BI-RADS Category 1: Negative
== END 2025-07-04 10:48 | disposition home or self-care (01) ==
LOC: MICIMG 10:48
PROVIDERS: PCP Family Medicine; Visit Provider Obstetrics & Gynecology
DX: Z12.13 Encounter for screening for malignant neoplasm of small intestine (principal)
CPT/HCPCS: 77063; 77067